=== PATIENT | male | born 1940 | race Caucasian/White ===

== ENCOUNTER 2020-02-14 09:31 | Outpatient (REF) | payer MEDICARE, OTHER, SELFPAY ==
--- NOTE | 2020-02-14 | US_ITS ---
EXAMINATION: NONINVASIVE ASSESSMENT OF THE ARTERIES OF BOTH LOWER EXTREMITIES WITH PVR EXAM AND BILATERAL LOWER EXTREMITY DUPLEX CLINICAL INFORMATION: Peripheral vascular disease. TECHNIQUE: Ankle pulse volume recordings, ankle pressure measurements and ankle brachial indices were obtained of the lower extremity arterial system bilaterally. Additionally, duplex Doppler techniques were used with wave form analysis and measurement of velocities in the common femoral, profunda femoral, superficial femoral, popliteal and tibial arteries. The study was performed only at rest. COMPARISON: Lower extremity ultrasound, arterial 07/21/2019. FINDINGS: ANKLE-BRACHIAL INDEX: Right: 0.72 Left: 0.68 ANKLE PRESSURES: Right: PT 107, DP 128 Left: PT 120, DP 109 PVR WAVEFORM: Right: Loss of dicrotic notch. Left: Loss of dicrotic notch. DIRECT DUPLEX DOPPLER FINDINGS: Right Leg: Common femoral artery: 88 cm/s, diastolic flow reversal: Yes. Profunda femoris artery: 130 cm/s, diastolic flow reversal: Yes. Superficial femoral artery (proximal): 96 cm/s, diastolic flow reversal: Yes. Superficial femoral artery (mid): 314 cm/s, diastolic flow reversal: Yes. Superficial femoral artery (distal): 149 cm/s, diastolic flow reversal: Yes. Popliteal artery: 124 cm/s, diastolic flow reversal: Yes. Posterior tibial artery: 34 cm/s, diastolic flow reversal: Yes. Left Leg: Common femoral artery: 86 cm/s, diastolic flow reversal: Yes. Profunda femoris artery: 94 cm/s, diastolic flow reversal: Yes. Superficial femoral artery (proximal): Occluded (including SFA stent) Superficial femoral artery (mid): 46 cm/s, diastolic flow reversal: No. Superficial femoral artery (distal): 66 cm/s, diastolic flow reversal: Yes. Popliteal artery: 56 cm/s, diastolic flow reversal: No. Posterior tibial artery: 46 cm/s, diastolic flow reversal: Yes. US/US arterial duplex LE BI IMPRESSION: Right leg: THOMAS 0.72. Focal high-grade stenosis of the mid SFA. Multiphasic waveforms are demonstrated throughout the right lower extremity. Left leg: THOMAS 0.68. Occlusion of the proximal SFA and SFA stent. Reconstitution of the mid SFA via collaterals. THOMAS Reference: - >0.97-1.25 = normal - no significant arterial disease. - 0.75-0.96 = mild peripheral arterial disease. - 0.5-0.74 = moderate peripheral arterial disease. - <0.50 = severe peripheral arterial disease.
== END 2020-02-14 09:32 | disposition home or self-care (01) ==
LOC: HO.US 09:31
PROVIDERS: Visit Provider Surgery Vascular Surgery
DX: I73.9 Peripheral vascular disease, unspecified (principal)
CPT/HCPCS: 93923; 93925

== ENCOUNTER → 2020-11-16 12:14 | Outpatient (BNVA) | payer MEDICARE, OTHER, SELFPAY | PROVIDERS: PCP Family Medicine; Visit Provider Surgery Vascular Surgery | DX: I73.9 Peripheral vascular disease, unspecified (principal) | CPT/HCPCS: 99212 ==

== ENCOUNTER 2020-12-05 09:49 | Outpatient (REF) | payer MEDICARE, OTHER, SELFPAY ==
--- NOTE | ~2020-12-05 | US_ITS ---
EXAMINATION: NONINVASIVE ASSESSMENT OF THE ARTERIES OF BOTH LOWER EXTREMITIES INCLUDING PVR EXAM AND BILATERAL LOWER EXTREMITY DUPLEX CLINICAL INFORMATION: Peripheral vascular disease COMPARISON: None TECHNIQUE: Ankle pulse volume recordings, ankle pressure measurements and ankle brachial indices were obtained of the lower extremity arterial system bilaterally in addition to duplex Doppler techniques with wave form analysis and measurement of velocities in the common femoral, profunda femoral, superficial femoral, popliteal, tibial and peroneal arteries. The study was performed only at rest. FINDINGS: RIGHT LEG 1. Right Ankle-Brachial Index: 0.79 >0.97-1.25 = normal - no significant arterial disease 0.75-0.96 = mild peripheral arterial disease 0.5-0.74 = moderate peripheral arterial disease <0.50 = severe peripheral arterial disease <0.30 = critical arterial disease 2. Segmental Pressures (mmHg): Brachial: 150 Ankle: PT 125, DP 128 3. PVR Waveforms: Ankle: Loss of dicrotic notch 4. Direct Duplex: Common femoral artery: 92.6 cm/s, biphasic Profunda femoris artery: 150 cm/s, biphasic Superficial femoral artery (proximal): 93.8 cm/s, biphasic Superficial femoral artery (mid): 321 cm/s, biphasic Superficial femoral artery (distal): 138 cm/s, biphasic Proximal Popliteal artery: 57.4 cm/s, biphasic Distal popliteal artery: 93.2 cm/s, biphasic Proximal posterior tibial artery: 71.5 cm/s, biphasic LEFT LE. Left Ankle-Brachial Index: 0.7 (higher of the DP/PT) >0.97-1.25 = normal - no significant arterial disease 0.75-0.96 = mild peripheral arterial disease 0.5-0.74 = moderate peripheral arterial disease <0.50 = severe peripheral arterial disease <0.30 = critical arterial disease 2. Segmental Pressures: Brachial: 162 Ankle: PT 103, DP 114 3. PVR Waveforms: Ankle: Loss of dicrotic notch 4. Direct Duplex: Common femoral artery: 96.2 cm/s, biphasic Profunda femoris artery: 126 cm/s, biphasic Superficial femoral artery (proximal): There is a focal stenosis of the proximal superficial femoral artery. Proximal to the stenosis peak systolic velocity is 29.8 cm/s with a high resistance waveform. At the level of the stenosis the peak systolic velocity is 262 cm/s and distal to the stenosis peak systolic velocity is 19.1 cm/s with a monophasic waveform. Superficial femoral artery (mid): 86 cm/s, biphasic Superficial femoral artery (distal): 72.1 cm/s, biphasic Proximal Popliteal artery: 42 cm/s, biphasic Distal popliteal artery: 20.7 cm/s, biphasic Mid posterior tibial artery: 35.9 cm/s, biphasic Peroneal artery: 28.1 cm/s, biphasic US/US arterial duplex LE BI IMPRESSION: Right: THOMAS 0.79 and loss of dicrotic notch on PVR. Focal severe stenosis of the mid SFA. Biphasic waveforms are seen throughout the lower extremity. Left: THOMAS 0.7 and loss of dicrotic notch and PVR. There is focal severe stenosis of the proximal SFA, expected region of the SFA stent. There are monophasic waveforms about the level of the stenosis, otherwise biphasic waveforms are seen throughout the remainder of the lower extremity.
== END 2020-12-05 09:50 | disposition home or self-care (01) ==
LOC: HO.US 09:49
PROVIDERS: PCP Family Medicine; Visit Provider Surgery Vascular Surgery
DX: I70.213 Atherosclerosis of native arteries of extremities with intermittent claudication, bilateral legs (principal)
CPT/HCPCS: 93923; 93925

== ENCOUNTER → 2020-12-21 10:10 | Outpatient (BNVA) | payer MEDICARE, BC, SELFPAY | PROVIDERS: PCP Family Medicine; Visit Provider Surgery Vascular Surgery | DX: I73.9 Peripheral vascular disease, unspecified (principal); E78.00 Pure hypercholesterolemia, unspecified; I10 Essential (primary) hypertension; F17.210 Nicotine dependence, cigarettes, uncomplicated | CPT/HCPCS: 99212 ==

== ENCOUNTER 2021-06-18 13:28 | Outpatient (REF) | payer MEDICARE, BC, SELFPAY ==
--- NOTE | ~2021-06-18 | US_ITS ---
EXAMINATION: NONINVASIVE ASSESSMENT OF THE ARTERIES OF BOTH LOWER EXTREMITIES WITH PVR EXAM AND BILATERAL LOWER EXTREMITY DUPLEX CLINICAL INFORMATION: Peripheral vascular disease. TECHNIQUE: Ankle pulse volume recordings, ankle pressure measurements and ankle-brachial indices were obtained of the lower extremity arterial system bilaterally. Additionally, duplex Doppler techniques were used with wave form analysis and measurement of velocities in the common femoral, profunda femoral, superficial femoral, popliteal and tibial arteries. The study was performed only at rest. COMPARISON: None. FINDINGS: ANKLE-BRACHIAL INDEX: Right: 0.72 Left: 0.69 PVR WAVEFORM (ANKLE): Right: Moderately dampened. Left: normal. DIRECT DUPLEX DOPPLER FINDINGS: RIGHT LEG: Common femoral artery: 113 cm/s, diastolic flow reversal: Yes. Profunda femoris artery: 149 cm/s, diastolic flow reversal: No. Superficial femoral artery (proximal): 68 cm/s, diastolic flow reversal: No. Superficial femoral artery (mid): 101 cm/s, diastolic flow reversal: No. Superficial femoral artery (distal): 132 cm/s, diastolic flow reversal: No. Popliteal artery: 91 cm/s, diastolic flow reversal: No. Posterior tibial artery: 14 cm/s, diastolic flow reversal: No. Additional: Grayscale evaluation of the right lower extremity arterial vasculature reveals moderate to heavy atherosclerotic disease. Within the mid right femoral artery is heavy, shadowing calcification which results in at least a moderate hemodynamically significant stenosis. Additionally, grayscale evaluation of the popliteal artery reveals heavy atherosclerosis. LEFT LEG: Common femoral artery: 113 cm/s, diastolic flow reversal: Yes. Profunda femoris artery: 116 cm/s, diastolic flow reversal: Yes. Superficial femoral artery (proximal): Yes Superficial femoral artery (mid): 27.1 cm/s, diastolic flow reversal: No. SFA stent: [place] artery (proximal SFA) 314 cm/s, monophasic flow. Proximal stent: 106 cm/s, monophasic flow. Mid stent: 61 cm/s, monophasic flow. Distal stent: 89 cm/s, monophasic flow. [place] artery (distal SFA): 96 cm/s, monophasic flow. Superficial femoral artery (distal): 89.1 cm/s, diastolic flow reversal: No. Popliteal artery: 36.4 cm/s, diastolic flow reversal: No. Posterior tibial artery: 44 cm/s, diastolic flow reversal: No. Peroneal artery: Not visualized. US/US THOMAS complete IMPRESSION: Right leg: THOMAS 0.72 consistent with moderate peripheral arterial disease. Duplex ultrasound reveals no significant change from the prior examination on 12/05/2020 with persistent, high-grade stenosis of the mid SFA. Left leg: THOMAS 0.69 consistent with moderate peripheral arterial disease. Duplex ultrasound reveals high-grade stenosis involving the proximal SFA along the proximal end of the SFA stent. The stent appears patent with monophasic waveforms throughout the remainder of the left lower extremity. THOMAS Reference: - >0.97-1.25 = normal - no significant arterial disease. - 0.75-0.96 = mild peripheral arterial disease. - 0.5-0.74 = moderate peripheral arterial disease. - <0.50 = severe peripheral arterial disease.
--- NOTE | ~2021-06-18 | US_ITS ---
EXAMINATION: NONINVASIVE ASSESSMENT OF THE ARTERIES OF BOTH LOWER EXTREMITIES WITH PVR EXAM AND BILATERAL LOWER EXTREMITY DUPLEX CLINICAL INFORMATION: Peripheral vascular disease. TECHNIQUE: Ankle pulse volume recordings, ankle pressure measurements and ankle-brachial indices were obtained of the lower extremity arterial system bilaterally. Additionally, duplex Doppler techniques were used with wave form analysis and measurement of velocities in the common femoral, profunda femoral, superficial femoral, popliteal and tibial arteries. The study was performed only at rest. COMPARISON: None. FINDINGS: ANKLE-BRACHIAL INDEX: Right: 0.72 Left: 0.69 PVR WAVEFORM (ANKLE): Right: Moderately dampened. Left: normal. DIRECT DUPLEX DOPPLER FINDINGS: RIGHT LEG: Common femoral artery: 113 cm/s, diastolic flow reversal: Yes. Profunda femoris artery: 149 cm/s, diastolic flow reversal: No. Superficial femoral artery (proximal): 68 cm/s, diastolic flow reversal: No. Superficial femoral artery (mid): 101 cm/s, diastolic flow reversal: No. Superficial femoral artery (distal): 132 cm/s, diastolic flow reversal: No. Popliteal artery: 91 cm/s, diastolic flow reversal: No. Posterior tibial artery: 14 cm/s, diastolic flow reversal: No. Additional: Grayscale evaluation of the right lower extremity arterial vasculature reveals moderate to heavy atherosclerotic disease. Within the mid right femoral artery is heavy, shadowing calcification which results in at least a moderate hemodynamically significant stenosis. Additionally, grayscale evaluation of the popliteal artery reveals heavy atherosclerosis. LEFT LEG: Common femoral artery: 113 cm/s, diastolic flow reversal: Yes. Profunda femoris artery: 116 cm/s, diastolic flow reversal: Yes. Superficial femoral artery (proximal): Yes Superficial femoral artery (mid): 27.1 cm/s, diastolic flow reversal: No. SFA stent: [place] artery (proximal SFA) 314 cm/s, monophasic flow. Proximal stent: 106 cm/s, monophasic flow. Mid stent: 61 cm/s, monophasic flow. Distal stent: 89 cm/s, monophasic flow. [place] artery (distal SFA): 96 cm/s, monophasic flow. Superficial femoral artery (distal): 89.1 cm/s, diastolic flow reversal: No. Popliteal artery: 36.4 cm/s, diastolic flow reversal: No. Posterior tibial artery: 44 cm/s, diastolic flow reversal: No. Peroneal artery: Not visualized. US/US arterial duplex LE BI IMPRESSION: Right leg: THOMAS 0.72 consistent with moderate peripheral arterial disease. Duplex ultrasound reveals no significant change from the prior examination on 12/05/2020 with persistent, high-grade stenosis of the mid SFA. Left leg: THOMAS 0.69 consistent with moderate peripheral arterial disease. Duplex ultrasound reveals high-grade stenosis involving the proximal SFA along the proximal end of the SFA stent. The stent appears patent with monophasic waveforms throughout the remainder of the left lower extremity. THOMAS Reference: - >0.97-1.25 = normal - no significant arterial disease. - 0.75-0.96 = mild peripheral arterial disease. - 0.5-0.74 = moderate peripheral arterial disease. - <0.50 = severe peripheral arterial disease.
== END 2021-06-18 13:29 | disposition home or self-care (01) ==
LOC: HO.US 13:28
PROVIDERS: Visit Provider Surgery Vascular Surgery
DX: I73.9 Peripheral vascular disease, unspecified (principal)
CPT/HCPCS: 93923; 93925

== ENCOUNTER → 2021-06-28 09:54 | Outpatient (BNVA) | payer MEDICARE, BC, SELFPAY | PROVIDERS: PCP Family Medicine; Visit Provider Surgery Vascular Surgery | DX: I73.9 Peripheral vascular disease, unspecified (principal) | CPT/HCPCS: 99212 ==

== ENCOUNTER 2022-01-10 10:04 | Outpatient (REF) | payer MEDICARE, BC, SELFPAY ==
--- NOTE | ~2022-01-10 | US_ITS ---
EXAMINATION: Noninvasive assessment of the bilateral lower extremities with ARTERIAL DUPLEX and ANKLE BRACHIAL INDICES (ABIs). CLINICAL INFORMATION: Peripheral vascular disease TECHNIQUE: Duplex Doppler techniques with waveform analysis and measurement of velocities in the bilateral common femoral, profunda femoris, superficial femoral, popliteal and tibial arteries were performed. Additionally, ankle pulse volume recordings, ankle pressure measurements and ankle brachial indices were obtained of the lower extremity arterial system bilaterally. The study was performed only at rest. COMPARISON: 06/18/2021 FINDINGS: DIRECT DUPLEX DOPPLER FINDINGS: RIGHT LEG: Common femoral artery: 81 cm/s, phasicity: Biphasic. Mild calcified plaque Profunda femoris artery: 120 cm/s, phasicity: Biphasic Superficial femoral artery (proximal): 67 cm/s, phasicity: Biphasic. Mild calcified plaque Superficial femoral artery (mid): 180 cm/s, phasicity: Biphasic. Greater than 2:1 velocity shift ratio. Moderate calcified plaque Superficial femoral artery (distal): 100 cm/s, phasicity: Biphasic. Moderate calcified plaque Popliteal artery: 72 cm/s in the proximal segment and 37 cm/s in the distal segment, phasicity: Monophasic Posterior tibial artery: 30 cm/s, phasicity: Monophasic Peroneal artery: 53.4 cm/s, phasicity: Biphasic LEFT LEG: Common femoral artery: 73 cm/s, phasicity: Biphasic. Mild calcified plaque Profunda femoris artery: 65 cm/s, phasicity: Biphasic. Superficial femoral artery (proximal): 64 cm/s, phasicity: Monophasic. Mild calcified plaque. Superficial femoral artery (mid): Stent is occluded Superficial femoral artery (distal): 63.3 cm/s, phasicity: Monophasic. Recanalized flow is seen in the distal portion of the stent Popliteal artery: 29.4 cm/s, phasicity: Monophasic Posterior tibial artery: 20.3 cm/s, phasicity: Biphasic Peroneal artery: 39.4 cm/s, phasicity: Monophasic ANKLE-BRACHIAL INDEX: Right: 0.84, previously measuring 0.72? Left: 0.71, previously measuring 0.69 ANKLE PRESSURES: Right: PT 120, DP 130 Left: PT?109, DP?102 ANKLE PVR WAVEFORMS: Right: Dampened Left: Dampened US/US arterial duplex LE BI IMPRESSION: Right leg: Ankle-brachial index is mildly decreased and stable. Elevated velocity with calcified plaque consistent with a moderate stenosis seen in the mid to distal superficial femoral artery and proximal popliteal artery. This is grossly unchanged compared to the prior exam Left leg: Ankle-brachial index is mildly decreased and stable. Stent in the mid to distal left superficial femoral artery demonstrates interval occlusion compared to the prior exam. Markedly dampened waveforms seen distally THOMAS Reference: - >1.4 = calcified vessels - 0.9 - 1.4 = normal - no significant arterial disease - 0.7 - 0.89 = mild peripheral arterial disease - 0.51 - 0.69 = moderate peripheral arterial disease - ? 0.50 = severe peripheral arterial disease - < .30 = critical arterial disease
== END 2022-01-10 10:05 | disposition home or self-care (01) ==
LOC: HO.US 10:04
PROVIDERS: Visit Provider Surgery Vascular Surgery
DX: I73.9 Peripheral vascular disease, unspecified (principal)
CPT/HCPCS: 93923; 93925

== ENCOUNTER → 2022-01-22 13:09 | Outpatient (BNVA) | payer MEDICARE, BC, SELFPAY | PROVIDERS: PCP Family Medicine; Visit Provider Surgery Vascular Surgery | DX: I73.9 Peripheral vascular disease, unspecified (principal) | CPT/HCPCS: 99212 ==

== ENCOUNTER 2022-06-13 08:55 | Outpatient (REF) | payer MEDICARE, BC, SELFPAY ==
--- NOTE | ~2022-06-13 | US_ITS ---
EXAMINATION: NONINVASIVE ASSESSMENT OF THE ARTERIES OF BOTH LOWER EXTREMITIES CLINICAL INFORMATION: Peripheral vascular disease. COMPARISON: 01/10/2022. TECHNIQUE: Segmental ankle pulse volume recording, pressure measurement at the ankle and ankle brachial indices were obtained of the lower extremity arterial system bilaterally. In addition, bilateral lower extremity duplex ultrasound was performed with velocity measurements and waveform analysis in the common femoral arteries, profunda femoris arteries, proximal mid and distal superficial femoral arteries, popliteal arteries and tibial vessels. This study was performed at rest only. FINDINGS: a) AT REST: 1. The ankle-brachial indices are: Right 0.74 and left 0.71. (Previously 0.84 and 0.72). >0.97-1.25 = normal - no significant arterial disease. 0.75-0.96 = mild peripheral arterial disease. 0.5-0.74 = moderate peripheral arterial disease. <0.50 = severe peripheral arterial disease. 2. Segmental pressure at ankle: Decreased. 3. PVR waveform at ankle: Normal. 4. Duplex exam. Velocities in cm/sec and phasicity as well as the presence of plaque are reported below. RIGHT LEG: Moderate plaque is present. Monophasic flow is seen with the exception of triphasic flow. At the time of the prior study, flow was biphasic. Common Femoral: 108 Profunda Femoris: 122 Proximal SFA: 69 Mid SFA: 73 Distal SFA: 114 Popliteal: 84 Tibial: 19 LEFT LEG: Moderate plaque is present. Biphasic flow is noted throughout. Common Femoral: 54 Profunda Femoris: Not seen Proximal SFA: 36 Mid SFA: Stent patent Distal SFA: 53 Popliteal: 42 Tibial: 41 US/US THOMAS complete IMPRESSION: By THOMAS criteria, there is moderate peripheral vascular disease bilaterally with decrease in THOMAS from 0.84 to 0.74 on the right and 0.71 on the left, essentially unchanged from 0.72 previously. 122 monophasic flow is noted throughout the right extremity, whereas previously this was biphasic.
--- NOTE | ~2022-06-13 | US_ITS ---
EXAMINATION: NONINVASIVE ASSESSMENT OF THE ARTERIES OF BOTH LOWER EXTREMITIES CLINICAL INFORMATION: Peripheral vascular disease. COMPARISON: 01/10/2022. TECHNIQUE: Segmental ankle pulse volume recording, pressure measurement at the ankle and ankle brachial indices were obtained of the lower extremity arterial system bilaterally. In addition, bilateral lower extremity duplex ultrasound was performed with velocity measurements and waveform analysis in the common femoral arteries, profunda femoris arteries, proximal mid and distal superficial femoral arteries, popliteal arteries and tibial vessels. This study was performed at rest only. FINDINGS: a) AT REST: 1. The ankle-brachial indices are: Right 0.74 and left 0.71. (Previously 0.84 and 0.72). >0.97-1.25 = normal - no significant arterial disease. 0.75-0.96 = mild peripheral arterial disease. 0.5-0.74 = moderate peripheral arterial disease. <0.50 = severe peripheral arterial disease. 2. Segmental pressure at ankle: Decreased. 3. PVR waveform at ankle: Normal. 4. Duplex exam. Velocities in cm/sec and phasicity as well as the presence of plaque are reported below. RIGHT LEG: Moderate plaque is present. Monophasic flow is seen with the exception of triphasic flow. At the time of the prior study, flow was biphasic. Common Femoral: 108 Profunda Femoris: 122 Proximal SFA: 69 Mid SFA: 73 Distal SFA: 114 Popliteal: 84 Tibial: 19 LEFT LEG: Moderate plaque is present. Biphasic flow is noted throughout. Common Femoral: 54 Profunda Femoris: Not seen Proximal SFA: 36 Mid SFA: Stent patent Distal SFA: 53 Popliteal: 42 Tibial: 41 US/US arterial duplex LE BI IMPRESSION: By THOMAS criteria, there is moderate peripheral vascular disease bilaterally with decrease in THOMAS from 0.84 to 0.74 on the right and 0.71 on the left, essentially unchanged from 0.72 previously. 122 monophasic flow is noted throughout the right extremity, whereas previously this was biphasic.
== END 2022-06-13 08:56 | disposition home or self-care (01) ==
LOC: HO.US 08:55
PROVIDERS: PCP Family Medicine; Visit Provider Surgery Vascular Surgery
DX: I70.213 Atherosclerosis of native arteries of extremities with intermittent claudication, bilateral legs (principal)
CPT/HCPCS: 93923; 93925

== ENCOUNTER → 2022-07-02 14:53 | Outpatient (BNVA) | payer MEDICARE, BC, SELFPAY | PROVIDERS: PCP Family Medicine; Visit Provider Surgery Vascular Surgery | DX: I73.9 Peripheral vascular disease, unspecified (principal) | CPT/HCPCS: 99212 ==

== ENCOUNTER 2023-01-01 09:18 | Outpatient (REF) | payer MEDICARE, BC, SELFPAY ==
--- NOTE | ~2023-01-01 | US_ITS ---
EXAMINATION: NONINVASIVE ASSESSMENT OF THE ARTERIES OF BOTH LOWER EXTREMITIES INCLUDING PVR EXAM AND BILATERAL LOWER EXTREMITY DUPLEX CLINICAL INFORMATION: Vascular disease, unspecified COMPARISON: Ultrasound 06/13/2022 TECHNIQUE: Ankle pulse volume recordings, ankle pressure measurements and ankle brachial indices were obtained of the lower extremity arterial system bilaterally in addition to duplex Doppler techniques with wave form analysis and measurement of velocities in the common femoral, profunda femoral, superficial femoral, popliteal, tibial and peroneal arteries. The study was performed only at rest. FINDINGS: RIGHT LEG 1. Right Ankle-Brachial Index: 0.73 (higher of the DP/PT) >0.97-1.25 = normal - no significant arterial disease 0.75-0.96 = mild peripheral arterial disease 0.5-0.74 = moderate peripheral arterial disease <0.50 = severe peripheral arterial disease <0.30 = critical arterial disease 2. Segmental Pressures (mmHg): Brachial: 164 Ankle: PT 119, DP 115 3. PVR Waveforms: Ankle: Dampened, no dicrotic notch 4. Direct Duplex: Common femoral artery: 92.1 cm/s, Multiphasic, there is mildly bulky calcific plaque Profunda femoris artery: 117.1 cm/s, Multiphasic Superficial femoral artery (proximal): 44 cm/s, Multiphasic Superficial femoral artery (mid): 69.5 cm/s, Multiphasic Superficial femoral artery (distal): 53 cm/s, monophasic Popliteal artery: 70.9 cm/s, monophasic Posterior tibial artery: 10.4 cm/s, monophasic Anterior tibial artery: 25.6 cm/s, monophasic Peroneal artery: 17 cm/s, monophasic LEFT LE. Left Ankle-Brachial Index: 0.71 (higher of the DP/PT) >0.97-1.25 = normal - no significant arterial disease 0.75-0.96 = mild peripheral arterial disease 0.5-0.74 = moderate peripheral arterial disease <0.50 = severe peripheral arterial disease <0.30 = critical arterial disease 2. Segmental Pressures: Brachial: 151 Ankle: PT 109, DP 102 3. PVR Waveforms: Ankle: Dampened, no dicrotic notch 4. Direct Duplex: Common femoral artery: 90.6 cm/s, Multiphasic, there is bulky heterogeneous plaque within the common femoral Profunda femoris artery: 82.3 cm/s, multiphasic Superficial femoral artery (proximal): Occlusion There is a stent within the midportion of the superficial femoral artery. Just proximal to the stent peak systolic velocities 36 cm/s and waveform is monophasic Proximal stent: 39.3 cm/s, multiphasic Mid stent 36.9 cm/s, multiphasic Distal stent 93.8 cm/s, multiphasic Distal to stent: 64.4 cm/s, Multiphasic Superficial femoral artery (distal): 51.3 cm/s, Multiphasic Popliteal artery: 37.8 cm/s, Multiphasic Anterior tibial artery: 18.8 cm/s, Multiphasic Posterior tibial artery: 20.9 cm/s, Multiphasic Peroneal artery: 16.3 cm/s, monophasic US/US arterial duplex LE BI IMPRESSION: The THOMAS is 0.73 on the right. PVR waveform is dampened. At the level of the distal superficial femoral artery there is a transition to monophasic waveform with monophasic flow seen throughout the remainder of the right lower extremity arterial vasculature suggesting disease at the mid to distal portion of the superficial femoral artery. The THOMAS is 0.71 on the left. There is proximal occlusion of the superficial femoral artery with reconstitution just proximal to the stented midportion of the superficial femoral artery. Beyond the level of the stent, other than the monophasic waveform within the peroneal artery, waveforms are multiphasic.
== END 2023-01-01 09:19 | disposition home or self-care (01) ==
LOC: HO.US 09:18
PROVIDERS: PCP Family Medicine; Visit Provider Surgery Vascular Surgery
DX: I73.9 Peripheral vascular disease, unspecified (principal)
CPT/HCPCS: 93923; 93925

== ENCOUNTER 2023-01-07 09:50 | Outpatient (AMB) | payer MEDICARE, BC, SELFPAY ==
--- NOTE | 2023-01-07 09:51 | A.OFFVIS_ITS ---
Intake Vital Signs 01/07/23 09:52 Height 5 ft 9 in Weight 175 lb BMI 25.8 Intake Visit Reasons: 6 mo follow up arterial US 01/01/23 Intake Note: 6 mo follow up Arterial US 01/01/2023 w/ Hx of Right LE Angio 08/10/20 and Left LE Angio 04/05/2015. Pt states no changes, still get cramping in calves w/ ambulation, Right LE slightly worse than the Left LE. Accompanied by: Self / Same As Patient Allergies atorvastatin [Lipitor] Allergy (Unknown, Verified 01/07/23 09:57) Hives simvastatin [Zocor] Allergy (Unknown, Verified 01/07/23 09:57) Hives Sulfa (Sulfonamide Antibiotics) Allergy (Unknown, Verified 01/07/23 09:57) Unknown HPI 6 mo follow up arterial US 01/01/23 HPI Details Pleasant 82-year-old gentleman presents for routine arterial survei llance follow-up. He has been doing fairly well and walking several blocks with no difficulty. He has not been doing as much climbing of stairs as he has given up is shop. 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 He in general appears to be doing relatively well. Now presents for routine surveillance arterial follow-up of note he is a fellow car enthusiast [facility] Medical History Myocardial infarction acute (~08/2021) Peripheral vascular disease Hypercholesteremia Hypertension Surgical History H/O heart artery stent (~08/2021) Social History Patient Tobacco Use Status: Former Tobacco user Quit Date: 1994 Cigarette Packs Per Day: 1 Years Smoked: 37 Review of Systems Const All systems reviewed & are unremarkable except as noted in HPI and below Reports no additional complaints ENT Reports Normal hearing present Card Denies chest pain, Denies chest pain at rest, Denies chest pain with activity and Denies pedal edema Resp Denies cough GI Denies abdominal pain Musc Denies abnormal gait, Denies muscle cramps and Denies radiating pain into limb Skin/Breast Denies skin ulcer and Denies wounds Neuro Reports Normal hearing present and Denies abnormal gait Psych Reports no additional complaints Physical Exam Vital Signs: BMI result Body Mass Index 25.8 Const General: cooperative, healthy appearing and comfortable Orientation/consciousness: oriented to person, oriented to place and oriented to time HEENT Head: Yes normal to inspection Neck Neck: Yes normal visual inspection Carotids: no bruits Chest Chest palpation & inspection: normal inspection of the chest Resp Effort & Inspection: normal respiratory effort and able to speak in complete sentences Auscultation: clear to auscultation bilaterally, no crackles, no rales, no rhonchi and no wheezes Cardio Other: Bilateral DP signals Rate: regular rate Rhythm: regular rhythm Heart sounds: S1 normal heart sound present and S2 normal heart sound present Bruits: no carotid bruits Peripheral pulses: Peripheral pulses 2+ throughout GI Inspection: Yes normal to inspection Skin Wounds: no wounds Hair: normal Neuro General: oriented to person, oriented to place and oriented to time Cranial nerves: Yes CN's II-XII intact bilaterally and Yes Normal hearing present Cognition (Neuro): normal cognition Motor exam (neuro): 5/5 motor strength present throughout Extrem Other: venous exam: No significant superficial varicosities or spider telangiectasias, minimal edema General: No clubbing, No cyanosis and No edema Psych Appearance: grossly normal Mental Status: mental status grossly normal Speech and movement: Normal speech and movement present Results Reviewed Results Reviewed: Noninvasive arterial testing dated 01/01/2023 demonstrates THOMAS on the right of 0.73 and on the left of 0.71. Written report and images were reviewed. Assessment & Plan Assessment & Plan (1) PAD (peripheral artery disease): Comment: 08/11/2019 - diagnostic angiogram Code(s): I73.9 - Peripheral vascular disease, unspecified Plan: In short patient has stable claudication. I did review the pathophysiology of peripheral vascular disease with the patient. In addition we did discuss routine conservative measures including a healthy diet and the importance of exercise and ambulation. We did discuss risk factor modification. The patient will continue to to follow-up with surveillance follow-up in approximately 1 year. Thank you for allowing us to participate in this patient's care. If there are any questions or concerns please do not hesitate to contact us. Orders: Orders US arterial duplex LE BI 364 Days I73.9 - Peripheral vascular disease, unspecified Coding Level of Care Code Est Pt Level 4 (50713) Diagnoses PAD (peripheral artery disease) I73.9
[2023-01-07 09:52] VITALS: BMI 25.8
== END 2023-01-07 10:24 | disposition home or self-care (01) ==
PROVIDERS: PCP Family Medicine; Visit Provider Surgery Vascular Surgery
DX: I73.9 Peripheral vascular disease, unspecified (principal)
CPT/HCPCS: 99213

== ENCOUNTER → 2023-01-07 09:50 | Outpatient (BNVA) | payer MEDICARE, BC, SELFPAY | PROVIDERS: PCP Family Medicine; Visit Provider Surgery Vascular Surgery | DX: I73.9 Peripheral vascular disease, unspecified (principal) | CPT/HCPCS: 99212 ==